=== PATIENT | female | born 1990 | race Caucasian/White ===

== ENCOUNTER 2016-07-11 00:33 | Emergency (ER) | payer MEDICAID ==
[~2016-07-11] VITALS: Ht 162.6 cm; Wt 82.0 kg
[~2016-07-11 00:33] MED LIST: BENZ1CAP34 PO
[2016-07-11 00:35] VITALS: BP 117/77; PULSE 67; RESP 16; TEMP 98; O2SAT 99
[2016-07-11] MEDS ORDERED: CLIN1CAP5 PO (16:55)
[2016-07-11] MEDS ORDERED: PERI0.126 SWISH-SPIT (16:55)
[2016-07-11] MEDS ORDERED: IBUP800T23 PO (16:55)
[2016-07-11] MEDS ORDERED: PRED-503 PO (17:00)
== END 2016-07-11 01:45 | disposition left against medical advice (07) ==
LOC: NED 00:34
DX: K13.79 Other lesions of oral mucosa (principal)
CPT/HCPCS: 99281

== ENCOUNTER 2016-07-11 15:20 | Emergency (ER) | payer MEDICAID ==
[~2016-07-11] VITALS: Ht 154.9 cm; Wt 85.0 kg
[2016-07-11 15:22] VITALS: BP 127/83; PULSE 100; RESP 20; TEMP 99; O2SAT 98
[2016-07-11] MEDS ORDERED: PERI0.126 SWISH-SPIT (16:55)
[2016-07-11] MEDS ORDERED: CLIN1CAP5 PO (16:55)
[2016-07-11] MEDS ORDERED: IBUP800T23 PO (16:55)
--- NOTE | 2016-07-11 16:56 | PD ---
HPI Chief Complaint: Oral / Dental Pain or Problem Time Seen by Provider: 16:54 Travel History International Travel<30 days: No Contact w/Intl Traveler<30days: No Traveled to known affect area: No History of Present Illness HPI 25-year-old female presents to the emergency Department with complaint of left lower dental pain and facial swelling 2 days. She says she has bad teeth to the left lower jaw. Denies fever, chills, nausea, vomiting. Has taken bares aspirin with minimal relief of pain. Has not tried any other treatments to alleviate symptoms. Pain is aggravated with eating, drinking, and is constant. Allergies to amoxicillin. No other modifying factors or associated signs and symptoms. PFSH Past Medical History Hx Anticoagulant Therapy: No Cardiovascular Problems: No Chemotherapy: No Cerebrovascular Accident: No Diabetes: No Diminished Hearing: No Genitourinary: Yes (NEPHROTIC SYNDROME) Respiratory: No Immunizations Current: No Renal Failure: Yes (kidney dse) : 3 Para: 0 Miscarriage: 2 : 1 Past Surgical History Section: Yes (x3) Hysterectomy: No Social History Alcohol Use: Yes (occ) Tobacco Use: No Substance Use: No Allergies-Medications (Allergen,Severity, Reaction): Coded Allergies: Amoxicillin (Verified Allergy, Severe, 07/11/16) Reported Meds & Prescriptions Reported Meds & Active Scripts Active Deltasone (Prednisone) 20 Mg Tab 40 Mg PO DAILY 4 Days start 07/12/2016 Peridex Liq (Chlorhexidine Gluconate (Mouth) Liq) 0.12% Soln 15 Ml SWISH-SPIT BID 10 Days Ibuprofen 800 Mg Tab 800 Mg PO Q6HR PRN Clindamycin (Clindamycin HCl) 150 Mg Cap 450 Mg PO Q6H 10 Days Benzonatate 200 Mg Cap 200 Mg PO TID PRN Review of Systems Except as stated in HPI: all other systems reviewed are Neg Physical Exam Narrative GENERAL: Well-nourished, well-developed female patient, in no acute distress; afebrile, nontoxic-appearing SKIN: Warm and dry. HEAD: Atraumatic. Normocephalic. Left lower facial edema; without erythema; with tenderness to palpation. EYES: Pupils equal and round. No scleral icterus. No injection or drainage. ENT: Mucosa pink and moist. Airway patent. MOUTH: Mucous membranes moist, no lesions, tongue and gums appear normal. Poor dentition throughout. Left lower second molar is with large dental carry and decay; with tenderness on palpation; no obvious abscess noted; surrounding gingiva is without erythema, edema, drainage. NECK: Trachea midline. No lymphadenopathy. CARDIOVASCULAR: Regular rate. RESPIRATORY: No accessory muscle use. GASTROINTESTINAL: Rounded. MUSCULOSKELETAL: No obvious deformities. No clubbing. No cyanosis. No edema. NEUROLOGICAL: Awake and alert. Oriented 3. No obvious cranial nerve deficits. Motor grossly within normal limits. Normal speech. PSYCHIATRIC: Appropriate mood and affect; insight and judgment normal. Data Data Last Documented VS Vital Signs Date Time Temp Pulse Resp B/P Pulse Ox O2 Delivery O2 Flow Rate FiO2 07/11/16 15:22 99.0 100 20 127/83 98 Room Air Orders Clindamycin Inj (Cleocin Inj) (07/11/16 17:00) Prednisone (Deltasone) (07/11/16 17:00) MDM Medical Decision Making Medical Screen Exam Complete: Yes Emergency Medical Condition: Yes Medical Record Reviewed: Yes Differential Diagnosis Dental abscess, infected dental caries, gingivitis, dentalgia Narrative Course 25-year-old female with left lower dentalgia, dental caries, and left lower facial edema without erythema. Patient is afebrile and nontoxic-appearing. Allergies to amoxicillin. Clindamycin 600 mg IM and Deltasone administered in the ER. Clindamycin, ibuprofen, Peridex mouth rinse prescribed for home. The emergency dental information sheet provided. Instructed patient to follow up with dentist. Patient verbalizes understanding and agreement with treatment plan. Patient is medically cleared and stable for discharge. Discussed reasons to return to the emergency department. Instructed patient to follow up with primary care provider. Patient agrees with treatment plan. The patients vital signs are stable and the patient is stable for outpatient follow-up and treatment. Patient discharged home, stable and in no acute distress. Diagnosis Primary Impression: Dentalgia Additional Impression: Facial edema Referrals: Dentist Primary Care Physician Patient Instructions: Dental Abscess (ED), Dental Caries (DC), General Instructions, Gingivitis (ED), Toothache (ED) Departure Forms: Tests/Procedures, Work Release Enter return to work date: Jul 13, 2016 Additional Instructions: Complete full course of antibiotics; clindamycin is on the $4 list at [facility] Ibuprofen as directed and as needed to reduce pain and inflammation Use Magic mouthwash rinse as directed and as needed to decrease pain Use Peridex as directed for oral hygiene Warm compresses to the affected area Follow-up with dentist Follow-up with primary care provider Return to emergency department immediately with worsening of symptoms Med/Other Pt SpecificInfo: Prescription(s) given Scripts Prednisone (Deltasone)20 Mg Tab40 Mg PO DAILY 4 Days Ref 0 start 07/12/2016 Prov:Effie Durant 07/11/16 Chlorhexidine Gluconate (Mouth) Liq (Peridex Liq)0.12% Soln15 Ml SWISH-SPIT BID 10 Days Ref 0 Prov:Effie Durant 07/11/16 Ibuprofen 800 Mg Lkg009 Mg PO Q6HR PRN (PAIN) #30 TAB Ref 0 Prov:Effie Durant 07/11/16 Clindamycin 150 Mg Jhb405 Mg PO Q6H 10 Days Ref 0 Prov:Effie Durant 07/11/16 Disposition: 01 DISCHARGE HOME Condition: Stable Effie Durant Jul 11, 2016 16:56
[2016-07-11] MEDS ORDERED: predniSONE 20 MG TAB PO ONE (17:00)
[2016-07-11] MEDS ORDERED: CLINDAMYCIN PHOS 600 MG/4 ML VIAL IM ONE (17:00)
[2016-07-11] MEDS ORDERED: PRED-503 PO (17:00)
[2016-07-11] MEDS ORDERED: ACETAMINOPHEN 325 MG TAB PO ONE (17:15)
== END 2016-07-11 17:45 | disposition home or self-care (01) ==
LOC: NETRI 15:20
DX: K08.89 Other specified disorders of teeth and supporting structures (principal)
CPT/HCPCS: 96372; 99282; J7512

== ENCOUNTER 2017-06-30 21:49 | Emergency (ER) | payer SELFPAY ==
[~2017-06-30] VITALS: Ht 154.9 cm; Wt 85.0 kg
[~2017-06-30 21:49] MED LIST changes: -BENZ1CAP34 PO; +BENZ1CAP51 PO; +CLIN150C14 PO; +IBUP1TAB7 PO; +PERI0.126 SWISH-SPIT; +PRED-503 PO
[2017-06-30 21:55] VITALS: BP 126/85; PULSE 91; RESP 16; TEMP 97.8; O2SAT 97
--- NOTE | 2017-06-30 22:11 | PD ---
HPI Chief Complaint: Cold / Flu Symptoms Time Seen by Provider: 22:08 Travel History International Travel<30 days: No Contact w/Intl Traveler<30days: No Traveled to known affect area: No History of Present Illness HPI 26-year-old white female presents him or department with a 2-3 day history of runny nose, cough, congestion, sore throat and general malaise. She denies any fever or chills. No ear pain, shortness of breath, wheezing, nausea, vomiting, diarrhea, abdominal pain or urinary symptoms. No alleviating factors. Exacerbated by congestion. History Past Medical Histgory Medical History: Denies Significant Hx Hx Chemotherapy: No Past Surgical History Surgical History: No Previous Surgery Social History Alcohol Use: Yes (occ) Tobacco Use: No Allergies-Medications (Allergen,Severity, Reaction): Coded Allergies: amoxicillin (Unverified Allergy, Severe, 06/30/17) Reported Meds & Prescriptions Reported Meds & Active Scripts Active Deltasone (Prednisone) 20 Mg Tab 40 Mg PO DAILY 4 Days start 07/12/2016 Peridex Liq (Chlorhexidine Gluconate (Mouth) Liq) 0.12% Soln 15 Ml SWISH-SPIT BID 10 Days Ibuprofen 800 Mg Tab 800 Mg PO Q6HR PRN Clindamycin (Clindamycin HCl) 150 Mg Cap 450 Mg PO Q6H 10 Days Benzonatate 200 Mg Cap 200 Mg PO TID PRN Review of Systems Except as stated in HPI: all other systems reviewed are Neg Physical Exam Narrative GENERAL: Well-developed, well-nourished in no acute distress. Nontoxic appearing. HEAD: Normocephalic, atraumatic. EYES: Pupils equal round and reactive. Extraocular motions intact. No scleral icterus. No injection or drainage. ENT: TMs clear without erythema. The external auditory canals clear. Nose: clear . Posterior pharynx is pink and moist. No tonsillar edema or exudate. Uvula midline. Airway patent. NECK: Trachea midline.Supple, nontender, moves head freely. No central bony tenderness or spasm. CARDIOVASCULAR: Regular rate and rhythm without murmurs, gallops, or rubs. RESPIRATORY: Clear to auscultation. Breath sounds equal bilaterally. No wheezes , rales, or rhonchi. GASTROINTESTINAL: Abdomen soft, non-tender, nondistended. No hepato-splenomegaly , or palpable masses. No guarding. EXTREMITIES: No clubbing, cyanosis, or edema. No joint tenderness, effusion, or edema noted. BACK: Nontender without deformity or crepitance. No flank tenderness. Data Data Last Documented VS Vital Signs Date Time Temp Pulse Resp B/P (MAP) Pulse Ox O2 Delivery O2 Flow Rate FiO2 06/30/17 21:55 97.8 91 16 126/85 (99) 97 Room Air MDM Medical Screen Exam Complete: Yes Emergency Medical Condition: No Differential Diagnosis MDM: High Differential diagnoses: Pneumonia, bronchitis, URI, asthma, RAD, legionnaire's disease, SARS, ARDS, influenza, bronchiolitis, RSV,PE,CHF Narrative Course A medical screening exam was performed: At the time of evaluation the presenting medical condition was determined not to be of an emergent nature. The patient was given the option of receiving additional care, but declined. Patient was given options for additional community resources from which to obtain care. The Patient Has Been advised to seek medical attention for their presenting complaint. The patient has been advised to return to the ER at any time if an emergent condition develops. Primary Impression: Encounter for medical screening examination Condition: Matt Leung Jun 30, 2017 22:11
== END 2017-06-30 22:20 | disposition left against medical advice (07) ==
LOC: NEPK 21:49
DX: R09.89 Other specified symptoms and signs involving the circulatory and respiratory systems (principal); R05 Cough; R09.81 Nasal congestion; J02.9 Acute pharyngitis, unspecified; R53.81 Other malaise; Z88.0 Allergy status to penicillin
CPT/HCPCS: 99281